=== PATIENT | male | born 1980 | race Hispanic/Latino ===

== ENCOUNTER → 2023-12-17 | Day surgery (SDC) | payer OTHER ==
[~2023-12-17] MED LIST: ALBUMIN 25% 12.5GM 50ML 50 ML IV ONE; BENZOCAINE/TETRACAINE/BUTAMBEN AERO SPRAY 56 GM CAN ONE; DIPHENOXYLATE-1 EACH PO; FEROSUL325 MG PO; FIASP 100100 UNIT/1 SC; GLYCOPYRROLATE INJ 0.2 MG/ML VIAL ONE; INSULIN REGULAR, HUMAN 100 UNIT/1 ML ONE; LIDOCAINE HCL 2% LOCAL INJ 5 ML SDV VIAL INJ ONE; METFORMIN HCL500 MG PO; METOCLOPRAMIDE HCL 10 MG/2ML VIAL ONE; MIDODRINE HCL5 MG PO; PROPOFOL IV EMULSION 10 MG/ML 20 ML VIAL ONE; TYLENOL325 MG PO; VITAMIN B121000 MCG PO
[2023-12-17] MEDS: LACTATED RINGER'S 1,000 ML ONE (13:50)
[2023-12-17 16:56] VITALS: TEMP 97.6
[2023-12-17 17:55] VITALS: BP 107/82; PULSE 81; RESP 16; O2SAT 100
[2023-12-17 18:23] LABS: WBC,FECAL (FECAL LACTOFERRIN) NEGATIVE (NEGATIVE)
[2023-12-20 19:10] LABS: ENDOMYSIAL ANTIBODIES, IGA Negative (Negative)
[2023-12-20 22:08] LABS: IMMUNOGLOBULIN A 593 mg/dL (90-386); TISSUE TRANSGLUTAMINASE IGA AB <2 U/mL (0-3)
== END | disposition home or self-care (01) ==
LOC: OR 13:14
PROVIDERS: ATTEND Internal Medicine Gastroenterology
DX: K29.50 Unspecified chronic gastritis without bleeding (principal); C21.0 Malignant neoplasm of anus, unspecified; D12.0 Benign neoplasm of cecum; K52.9 Noninfective gastroenteritis and colitis, unspecified; K62.89 Other specified diseases of anus and rectum; Z71.3 Dietary counseling and surveillance; R63.4 Abnormal weight loss; E46 Unspecified protein-calorie malnutrition; D64.9 Anemia, unspecified; E11.9 Type 2 diabetes mellitus without complications; N39.0 Urinary tract infection, site not specified; Z01.810 Encounter for preprocedural cardiovascular examination; Z88.6 Allergy status to analgesic agent; Z79.84 Long term (current) use of oral hypoglycemic drugs; Z79.4 Long term (current) use of insulin; Z79.899 Other long term (current) drug therapy; Z86.711 Personal history of pulmonary embolism; Z80.0 Family history of malignant neoplasm of digestive organs
CPT/HCPCS: 36415; 43239; 45380; 45385; 82784; 83516; 83630; 83993; 86256; 87045; 87177; 87324; 87328; 87449; 93005; C9113; J2001; J2704; J2765; J7121

== ENCOUNTER 2023-12-24 21:05 | Inpatient (IN) | payer OTHER ==
[~2023-12-24] VITALS: Ht 162.6 cm; Wt 41.3 kg
[~2023-12-24 21:05] MED LIST changes: -ALBUMIN 25% 12.5GM 50ML 50 ML IV ONE; -BENZOCAINE/TETRACAINE/BUTAMBEN AERO SPRAY 56 GM CAN ONE; -GLYCOPYRROLATE INJ 0.2 MG/ML VIAL ONE; -INSULIN REGULAR, HUMAN 100 UNIT/1 ML ONE; -LIDOCAINE HCL 2% LOCAL INJ 5 ML SDV VIAL INJ ONE; -METOCLOPRAMIDE HCL 10 MG/2ML VIAL ONE; -PROPOFOL IV EMULSION 10 MG/ML 20 ML VIAL ONE
[2023-12-24] MEDS: SODIUM CHLORIDE 0.9% 1000ML 4,000 ML IV STA (21:37)
[2023-12-24] MEDS: ACETAMINOPHEN 325 MG TAB PO STA (21:40)
[2023-12-24 21:42] LABS: BASOPHILS # (AUTO) 0.1 (0.0-0.1); BASOPHILS % 0.3 % (0.0-1.0); EOSINOPHILS % 0.2 % (0.0-6.0); HEMATOCRIT 28.5 % (38.2-49.6); HEMOGLOBIN 9.9 g/dL (14.0-18.0); LYMPHOCYTES # (AUTO) 0.5 (1.0-3.2); LYMPHOCYTES % 3.1 % (18.0-39.1); MEAN CORPUSCULAR HEMOGLOBIN 29.9 pg (28-32); MEAN CORPUSCULAR HGB CONC 34.7 g/dL (31-35); MEAN CORPUSCULAR VOLUME 86.1 fL (81-99); MONOCYTES # (AUTO) 1.2 (0.2-0.8); MONOCYTES % 6.9 % (4.4-11.3); NEUTROPHILS # (AUTO) 15.2 (2.1-6.9); PLATELET COUNT 189 x10e3/uL (140-360); RED BLOOD COUNT 3.31 x10e6/uL (4.3-5.7); RED CELL DISTRIBUTION WIDTH 14.2 % (11.7-14.4); WHITE BLOOD COUNT 17.31 x10e3/uL (4.8-10.8)
[2023-12-24] MEDS ORDERED: ACETAMINOPHEN 325 MG TAB ONE (21:43)
[2023-12-24] MEDS ORDERED: MIDODRINE HCL 5 MG TABLET ONE (21:43)
[2023-12-24] MEDS: MIDODRINE 2.5 MG TAB PO SCH (21:44)
[2023-12-24 21:59] LABS: ALANINE AMINOTRANSFERASE 11 IU/L (0-55); ALBUMIN 2.3 g/dL (3.5-5.0); ALBUMIN/GLOBULIN RATIO 0.5 (0.8-2.0); ALKALINE PHOSPHATASE 104 IU/L (40-150); ANION GAP 29.1 mmol/L (8-16); BILIRUBIN,TOTAL 1.5 mg/dL (0.2-1.2); BLOOD UREA NITROGEN 51 mg/dL (7-26); BUN/CREATININE RATIO 25 (6-25); CALCIUM 9.6 mg/dL (8.4-10.2); CHLORIDE 88 mmol/L (98-107); CREATINE KINASE 52 IU/L (30-200); CREATININE, SERUM 2.05 mg/dL (0.72-1.25); EST GLOMERULAR FILTRATION RATE 41 ML/MIN (>=60); POTASSIUM 4.1 mmol/L (3.5-5.1); SODIUM 122 mmol/L (136-145); TOTAL PROTEIN 6.7 g/dL (6.5-8.1)
[2023-12-24 22:02] LABS: CARBON DIOXIDE 9 mmol/L (22-29)
[2023-12-24 22:03] LABS: GLUCOSE 568 mg/dL (74-118)
[2023-12-24] MEDS: DEXTROSE 5%/0.45% SOD CHL 1,000 ML IV SCH (22:15)
[2023-12-24 22:42] LABS: TROPONIN I < 0.001 ng/mL (0-0.300)
[2023-12-24 22:45] LABS: ABG PCO2 17 mmHg (35-45); ABG PH 7.22 (7.35-7.45)
[2023-12-24 22:46] LABS: ABG HCO3 7 mmol/L (22-26); ABG PO2 114 mmHg (80-105); ABG TCO2 7
[2023-12-24 22:51] LABS: B-TYPE NATRIURETIC PEPTIDE2 54.6 pg/mL (0-100)
[2023-12-24] MEDS: INSULIN REGULAR, HUMAN 3ML VL 100 UNIT in SODIUM CHLORIDE 0.9% 100 ML IV SCH (23:12)
[2023-12-24] MEDS: SODIUM CHLORIDE 0.9% 1000ML 1,000 ML IV SCH (23:16)
[2023-12-24 23:30] VITALS: PULSE 101; RESP 14; TEMP 97.1
[2023-12-24 23:50] VITALS: BP 91/51; PULSE 110; RESP 22; TEMP 98.1; O2SAT 98
[2023-12-25] VITALS (93 sets, daily range): BP systolic 64–104; BP diastolic 43–87; PULSE 32–148; RESP 18–38; TEMP 97.7–98.5; O2SAT 87–100
[2023-12-25 03:26] LABS: CREATINE KINASE 66 IU/L (30-200)
[2023-12-25 03:28] LABS: ANION GAP 19.1 mmol/L (8-16); CALCIUM 8.3 mg/dL (8.4-10.2); CREATININE, SERUM 1.37 mg/dL (0.72-1.25); MAGNESIUM 1.6 MG/DL (1.3-2.1)
[2023-12-25 03:34] LABS: POTASSIUM 3.1 mmol/L (3.5-5.1); TROPONIN I < 0.001 ng/mL (0-0.300)
[2023-12-25 04:28] LABS: LYMPHOCYTES % (MANUAL) 6 % (19-48); METAMYELOCYTES % (MANUAL) 3 % (0-0); MONOCYTES % (MANUAL) 5 % (3.4-9.0); NEUTROPHILS % (MANUAL) 86 % (40-74)
[2023-12-25 04:29] LABS: RBC MORPHOLOGY COMMENT ABNORMAL
[2023-12-25 04:30] LABS: ANISOCYTOSIS SLIGHT; BURR CELLS SLIGHT
[2023-12-25 04:31] LABS: PLATELET ESTIMATE ADEQUATE; PLATELET MORPHOLOGY COMMENT NORMAL
[2023-12-25 06:28] LABS: BASOPHILS % 0.3 % (0.0-1.0); HEMATOCRIT 22.8 % (38.2-49.6); HEMOGLOBIN 8.2 g/dL (14.0-18.0); LYMPHOCYTES # (AUTO) 0.1 (1.0-3.2); LYMPHOCYTES % 1.9 % (18.0-39.1); MEAN CORPUSCULAR HEMOGLOBIN 30.4 pg (28-32); MEAN CORPUSCULAR VOLUME 84.4 fL (81-99); MONOCYTES # (AUTO) 0.3 (0.2-0.8); MONOCYTES % 5.7 % (4.4-11.3); NEUTROPHILS # (AUTO) 5.2 (2.1-6.9); NEUTROPHILS % 90.4 % (38.7-80.0); PLATELET COUNT 146 x10e3/uL (140-360); WHITE BLOOD COUNT 5.76 x10e3/uL (4.8-10.8)
[2023-12-25 06:50] LABS: TROPONIN I 0.002 ng/mL (0-0.300)
[2023-12-25 07:08] LABS: ALBUMIN 1.7 g/dL (3.5-5.0); ALBUMIN/GLOBULIN RATIO 0.5 (0.8-2.0); ANION GAP 17.1 mmol/L (8-16); BILIRUBIN,TOTAL 1.1 mg/dL (0.2-1.2); CALCIUM 8.1 mg/dL (8.4-10.2); CREATININE, SERUM 1.08 mg/dL (0.72-1.25); MAGNESIUM 1.4 MG/DL (1.3-2.1); TOTAL PROTEIN 4.9 g/dL (6.5-8.1)
[2023-12-25 07:09] LABS: BAND NEUTROPHILS % (MANUAL) 7 %; LYMPHOCYTES % (MANUAL) 2 % (19-48); MONOCYTES % (MANUAL) 4 % (3.4-9.0); NEUTROPHILS % (MANUAL) 87 % (40-74); PLATELET ESTIMATE ADEQUATE; PLATELET MORPHOLOGY COMMENT NORMAL; POTASSIUM 3.1 mmol/L (3.5-5.1); RBC MORPHOLOGY COMMENT NORMAL
[2023-12-25] MEDS ORDERED: ACETAMINOPHEN 325 MG TAB PO PRN (07:15)
[2023-12-25] MEDS ORDERED: MICAFUNGIN SODIUM 100 MG IV SCH (07:45)
[2023-12-25] MEDS: VASOPRESSIN 60 UNIT in DEXTROSE 5% 50ML 50 ML IV SCH (07:57)
[2023-12-25] MEDS: AMIODARONE HCL 150 MG/100 ML BAG IV ONE (07:58)
[2023-12-25] MEDS: AMIODARONE 900MG 900 MG in Premix Bag 1 BAG IV SCH (08:14)
[2023-12-25] MEDS ORDERED: IOPAMIDOL 370 MG/ML 100 ML INFUS..BTL INJ ONE (08:33)
[2023-12-25] MEDS: AMIODARONE 900MG 500 ML IV ONE (09:42)
[2023-12-25] MEDS ORDERED: ALBUMIN 25% 25GM 100ML 0.25 GM/ML BTL IV ONE (09:45)
[2023-12-25] MEDS: MEROPENEM 1 GM in SODIUM CHLORIDE 0.9% 100 ML IV SCH (09:48)
[2023-12-25] MEDS: MICAFUNGIN SODIUM 100 MG in SODIUM CHLORIDE 0.9% 100 ML IV SCH (09:49)
[2023-12-25] MEDS: ALBUMIN 25% 25GM 100ML 100 ML IV ONE (10:09)
[2023-12-25] MEDS ORDERED: ALBUMIN 5% 0.05 GM/ML BTL IV ONE (10:30)
[2023-12-25 10:41] LABS: BILIRUBIN,URINE SMALL (NEGATIVE); CLARITY,URINE SL CLOUDY (CLEAR); COLOR,URINE YELLOW (YELLOW); GLUCOSE, URINE 2+ (NEGATIVE); KETONES,URINE 2+ (NEGATIVE); LEUKOCYTE ESTERASE ,URINE NEGATIVE (NEGATIVE); NITRITE,URINE NEGATIVE (NEGATIVE); PH,URINE 5.5 (5 - 7); PROTEIN,URINE DIPSTICK 2+ (NEGATIVE); URINE UROBILINOGEN 0.2 mg/dL (0.2 - 1)
[2023-12-25 10:56] LABS: BACTERIA,URINE FEW /HPF; EPITHELIAL CELLS,URINE FEW /LPF; RBC,URINE >50 /HPF (0-5); WBC,URINE (MAN) 0-5 /HPF (0-5); YEAST,URINE MODERATE
[2023-12-25] MEDS: MIDODRINE HCL 5 MG TABLET PO SCH (12:03)
[2023-12-25] MEDS: Vancomycin IV 1 GM in SODIUM CHLORIDE 0.9% 250ML 250 ML IV ONE (13:40)
[2023-12-25 13:50] LABS: MAGNESIUM 1.4 MG/DL (1.3-2.1); PHOSPHORUS 2.6 MG/DL (2.3-4.7)
[2023-12-25 13:52] LABS: ALBUMIN 1.9 g/dL (3.5-5.0); ALBUMIN/GLOBULIN RATIO 0.7 (0.8-2.0); ALKALINE PHOSPHATASE 48 IU/L (40-150); ANION GAP 12.7 mmol/L (8-16); BILIRUBIN,TOTAL 1.3 mg/dL (0.2-1.2); BLOOD UREA NITROGEN 31 mg/dL (7-26); BUN/CREATININE RATIO 33 (6-25); CARBON DIOXIDE 15 mmol/L (22-29); CHLORIDE 104 mmol/L (98-107); CREATININE, SERUM 0.95 mg/dL (0.72-1.25); EST GLOMERULAR FILTRATION RATE 102 ML/MIN (>=60); GLUCOSE 193 mg/dL (74-118); SODIUM 129 mmol/L (136-145); TOTAL PROTEIN 4.6 g/dL (6.5-8.1)
[2023-12-25 13:53] LABS: ALANINE AMINOTRANSFERASE < 6 IU/L (0-55)
[2023-12-25 13:54] LABS: POTASSIUM 2.7 mmol/L (3.5-5.1)
[2023-12-25 13:58] LABS: TROPONIN I 0.006 ng/mL (0-0.300)
[2023-12-25] MEDS: POTASSIUM CHLORIDE 20MEQ/100ML 200 ML IV PRN (14:01)
[2023-12-25] MEDS: POTASSIUM CHLORIDE 20MEQ/100ML 100 ML ONE ×2 (15:01)
[2023-12-25] MEDS: MAGNESIUM SULF 1GRAM/DEXTROSE 100 ML IV PRN (15:27)
[2023-12-25] MEDS: VASOPRESSIN 60 UNIT in DEXTROSE 5% 50ML 57 ML IV SCH ×2 (15:30→17:15)
[2023-12-25] MEDS: MAGNESIUM SULF 1GRAM/DEXTROSE 100 ML IV ONE (15:36)
[2023-12-25] MEDS ORDERED: Vancomycin IV 1 GM in SODIUM CHLORIDE 0.9% 250ML 250 ML IV SCH (17:30)
[2023-12-25 20:59] LABS: ANION GAP 11.8 mmol/L (8-16); CALCIUM 8.3 mg/dL (8.4-10.2); CREATININE, SERUM 0.79 mg/dL (0.72-1.25); MAGNESIUM 1.8 MG/DL (1.3-2.1)
[2023-12-25 21:06] LABS: POTASSIUM 2.8 mmol/L (3.5-5.1)
[2023-12-26] VITALS (88 sets, daily range): BP systolic 79–120; BP diastolic 56–102; PULSE 35–110; RESP 19–36; TEMP 97.8–98.2; O2SAT 87–100
[2023-12-26 03:52] LABS: ANION GAP 10.9 mmol/L (8-16); CALCIUM 8.5 mg/dL (8.4-10.2); CREATININE, SERUM 0.7 mg/dL (0.72-1.25)
[2023-12-26 03:55] LABS: POTASSIUM 2.9 mmol/L (3.5-5.1)
[2023-12-26] MEDS ORDERED: DEXTROSE 50% SYRINGE 50 ML IV ONE (07:34)
[2023-12-26] MEDS: AMIODARONE 900MG 500 ML IV ONE (08:01)
[2023-12-26] MEDS: POTASSIUM CHLORIDE 20MEQ/100ML 200 ML ONE ×2 (08:15→09:12)
[2023-12-26] MEDS: Vancomycin IV 1 GM in SODIUM CHLORIDE 0.9% 250ML 250 ML IV SCH (08:24)
[2023-12-26 08:32] LABS: ANION GAP 12.2 mmol/L (8-16); CALCIUM 8.3 mg/dL (8.4-10.2); CREATININE, SERUM 0.64 mg/dL (0.72-1.25)
[2023-12-26 08:43] LABS: POTASSIUM 3.2 mmol/L (3.5-5.1)
[2023-12-26] MEDS ORDERED: DEXTROSE 50% SYRINGE 50 ML IV PRN (09:30)
[2023-12-26] MEDS: DEXTROSE 50% SYRINGE 50 ML IV ONE (09:30)
[2023-12-26] MEDS: POTASSIUM CHLORIDE 20MEQ/100ML 100 ML IV PRN (09:47)
[2023-12-26 13:33] LABS: ANION GAP 12.2 mmol/L (8-16); CALCIUM 8.1 mg/dL (8.4-10.2); CREATININE, SERUM 0.63 mg/dL (0.72-1.25); MAGNESIUM 1.6 MG/DL (1.3-2.1)
[2023-12-26 13:41] LABS: POTASSIUM 3.2 mmol/L (3.5-5.1)
[2023-12-26 17:18] LABS: ANION GAP 11.3 mmol/L (8-16); CALCIUM 8.2 mg/dL (8.4-10.2); CREATININE, SERUM 0.62 mg/dL (0.72-1.25); MAGNESIUM 1.5 MG/DL (1.3-2.1)
[2023-12-26 17:21] LABS: POTASSIUM 3.3 mmol/L (3.5-5.1)
[2023-12-26] MEDS: MAGNESIUM SULF 1GRAM/DEXTROSE 100 ML IV PRN (17:25)
[2023-12-26] MEDS ORDERED: IOPAMIDOL 370 MG/ML 100 ML INFUS..BTL INJ ONE (22:05)
[2023-12-26 22:07] LABS: ANION GAP 10.4 mmol/L (8-16); CALCIUM 8.5 mg/dL (8.4-10.2); CREATININE, SERUM 0.64 mg/dL (0.72-1.25); MAGNESIUM 1.8 MG/DL (1.3-2.1)
[2023-12-26 22:14] LABS: POTASSIUM 3.4 mmol/L (3.5-5.1)
[2023-12-27] VITALS (53 sets, daily range): BP systolic 88–117; BP diastolic 61–83; PULSE 93–135; RESP 20–37; TEMP 97.6–98.3; O2SAT 90–100
[2023-12-27] MEDS: MEGESTROL ACETATE 40 MG TAB PO STA (00:31)
[2023-12-27] MEDS: ALBUMIN 25% 25GM 100ML 0.25 GM/ML BTL IV SCH (00:32)
[2023-12-27 01:29] LABS: IRON 40 ug/dL (65-175)
[2023-12-27 02:03] LABS: FOLATE 3.6 ng/mL (7.0-15.4)
[2023-12-27 03:07] LABS: CALCIUM 7.9 mg/dL (8.4-10.2); CREATININE, SERUM 0.67 mg/dL (0.72-1.25); MAGNESIUM 1.7 MG/DL (1.3-2.1)
[2023-12-27 03:11] LABS: % IRON SATURATION 41 % (15-50); TOTAL IRON BINDING CAPACITY 98 ug/dL (261-478)
[2023-12-27 03:22] LABS: TRANSFERRIN 70 mg/dL (174-364)
[2023-12-27 07:41] LABS: ANION GAP 13.2 mmol/L (8-16); CALCIUM 8.1 mg/dL (8.4-10.2); CREATININE, SERUM 0.65 mg/dL (0.72-1.25); MAGNESIUM 1.9 MG/DL (1.3-2.1)
[2023-12-27 07:42] LABS: POTASSIUM 3.2 mmol/L (3.5-5.1)
[2023-12-27] MEDS: MEGESTROL ACETATE 40 MG TAB PO SCH (08:12)
[2023-12-27] MEDS: BALSAM PERU/CASTOR OIL 60 GM OINT...G. TP SCH (08:13)
[2023-12-27] MEDS ORDERED: Vancomycin IV 1.5 GM in SODIUM CHLORIDE 0.9% 250ML 250 ML IV SCH (09:00)
[2023-12-27] MEDS: VANCOMYCIN 1.5 GM/300 ML 300 ML IV SCH (10:29)
[2023-12-27 11:10] LABS: CALCIUM 7.8 mg/dL (8.4-10.2); CREATININE, SERUM 0.62 mg/dL (0.72-1.25); MAGNESIUM 1.8 MG/DL (1.3-2.1)
[2023-12-27] MEDS: POTASSIUM CHLORIDE 20MEQ/100ML 200 ML IV PRN (11:29)
[2023-12-27] MEDS: DAPTOMYCIN 500mg 10ML 300 MG in SODIUM CHLORIDE 0.9% 100 ML IV SCH (14:39)
[2023-12-27] MEDS: METOPROLOL TARTRATE 25 MG TAB PO SCH (14:45)
[2023-12-27 16:05] LABS: ANION GAP 13.3 mmol/L (8-16); CALCIUM 7.9 mg/dL (8.4-10.2); CREATININE, SERUM 0.6 mg/dL (0.72-1.25); MAGNESIUM 1.8 MG/DL (1.3-2.1)
[2023-12-27 16:09] LABS: POTASSIUM 3.3 mmol/L (3.5-5.1)
[2023-12-27 21:08] LABS: ANION GAP 11.3 mmol/L (8-16); CALCIUM 8.3 mg/dL (8.4-10.2); CREATININE, SERUM 0.58 mg/dL (0.72-1.25); MAGNESIUM 1.8 MG/DL (1.3-2.1)
[2023-12-27 21:13] LABS: POTASSIUM 3.3 mmol/L (3.5-5.1)
[2023-12-28] VITALS (72 sets, daily range): BP systolic 73–104; BP diastolic 49–85; PULSE 33–103; RESP 14–36; TEMP 97.2–98.2; O2SAT 67–99
[2023-12-28 00:46] LABS: ANION GAP 10.4 mmol/L (8-16); CALCIUM 8.3 mg/dL (8.4-10.2); CREATININE, SERUM 0.59 mg/dL (0.72-1.25); MAGNESIUM 1.7 MG/DL (1.3-2.1)
[2023-12-28 00:50] LABS: POTASSIUM 3.4 mmol/L (3.5-5.1)
[2023-12-28 04:54] LABS: BASOPHILS % 0.3 % (0.0-1.0); EOSINOPHILS % 0.3 % (0.0-6.0); LYMPHOCYTES # (AUTO) 0.2 (1.0-3.2); LYMPHOCYTES % 1.9 % (18.0-39.1); MEAN CORPUSCULAR HEMOGLOBIN 30.3 pg (28-32); MEAN CORPUSCULAR HGB CONC 35.4 g/dL (31-35); MEAN CORPUSCULAR VOLUME 85.5 fL (81-99); MONOCYTES # (AUTO) 0.8 (0.2-0.8); MONOCYTES % 6.4 % (4.4-11.3); NEUTROPHILS # (AUTO) 10.7 (2.1-6.9); PLATELET COUNT 86 x10e3/uL (140-360); RED BLOOD COUNT 2.28 x10e6/uL (4.3-5.7); RED CELL DISTRIBUTION WIDTH 14.7 % (11.7-14.4)
[2023-12-28 04:59] LABS: HEMATOCRIT 19.5 % (38.2-49.6); HEMOGLOBIN 6.9 g/dL (14.0-18.0)
[2023-12-28 05:10] LABS: CALCIUM 8.1 mg/dL (8.4-10.2); CREATININE, SERUM 0.55 mg/dL (0.72-1.25); MAGNESIUM 1.6 MG/DL (1.3-2.1)
[2023-12-28] MEDS: ONDANSETRON HCL INJ 2MG/ML 2ML 2 MG/ML VIAL IV SCH (07:35)
[2023-12-28] MEDS: SODIUM CHLORIDE 0.9% 250ML 250 ML IV ONE (07:36)
[2023-12-28] MEDS: FOLIC ACID 1 MG TAB PO SCH (08:16)
[2023-12-28] MEDS: IRON SUCROSE 100 MG in SODIUM CHLORIDE 0.9% 100 ML IV SCH (08:16)
[2023-12-28] MEDS: FUROSEMIDE INJ 10 MG/ML 2 ML VIAL IV STA (08:36)
[2023-12-28] MEDS: INSULIN GLARGINE 100 UNITS/ML VIAL SQ ONE (08:37)
[2023-12-28] MEDS ORDERED: Vancomycin IV 2 GM in SODIUM CHLORIDE 0.9% 500ML 500 ML IV ONE (09:30)
[2023-12-28] MEDS: VASOPRESSIN 60 UNIT in DEXTROSE 5% 50ML 57 ML IV SCH (10:27)
[2023-12-28] MEDS: VANCOMYCIN 1.5 GM/300 ML 300 ML IV ONE (10:27)
[2023-12-28] MEDS: INSULIN REGULAR, HUMAN 100 UNIT/1 ML SQ SCH (11:58)
[2023-12-28] MEDS: Vancomycin IV 1 GM in SODIUM CHLORIDE 0.9% 250ML 250 ML IV SCH (21:30)
[2023-12-29] VITALS (85 sets, daily range): BP systolic 72–161; BP diastolic 51–111; PULSE 51–126; RESP 14–34; TEMP 98.2–106; O2SAT 91–100
[2023-12-29] MEDS: NOREPINEPHRINE 8 MG/D5W 250 ML 250 ML IV SCH (01:57)
[2023-12-29 02:18] LABS: ABG PH 7.19 (7.35-7.45)
[2023-12-29 02:19] LABS: ABG HCO3 20 mmol/L (22-26); ABG PCO2 52 mmHg (35-45); ABG PO2 79 mmHg (80-105); ABG TCO2 22
[2023-12-29 06:14] LABS: BASOPHILS # (AUTO) 0.1 (0.0-0.1); BASOPHILS % 0.4 % (0.0-1.0); EOSINOPHILS % 0.1 % (0.0-6.0); HEMATOCRIT 25.9 % (38.2-49.6); LYMPHOCYTES # (AUTO) 0.4 (1.0-3.2); LYMPHOCYTES % 2.8 % (18.0-39.1); MEAN CORPUSCULAR HEMOGLOBIN 30.6 pg (28-32); MEAN CORPUSCULAR HGB CONC 34.7 g/dL (31-35); MEAN CORPUSCULAR VOLUME 88.1 fL (81-99); MONOCYTES # (AUTO) 0.7 (0.2-0.8); NEUTROPHILS % 86.3 % (38.7-80.0); PLATELET COUNT 77 x10e3/uL (140-360); RED BLOOD COUNT 2.94 x10e6/uL (4.3-5.7); RED CELL DISTRIBUTION WIDTH 14.9 % (11.7-14.4); WHITE BLOOD COUNT 13.94 x10e3/uL (4.8-10.8)
[2023-12-29 07:01] LABS: ABG HCO3 19 mmol/L (22-26); ABG PCO2 42 mmHg (35-45); ABG PH 7.26 (7.35-7.45); ABG PO2 80 mmHg (80-105); ABG TCO2 20
[2023-12-29 08:13] LABS: ALBUMIN 3.7 g/dL (3.5-5.0); ALBUMIN/GLOBULIN RATIO 1.5 (0.8-2.0); ANION GAP 17.8 mmol/L (8-16); BILIRUBIN,TOTAL 2.7 mg/dL (0.2-1.2); CALCIUM 8.7 mg/dL (8.4-10.2); CREATININE, SERUM 0.74 mg/dL (0.72-1.25); TOTAL PROTEIN 6.1 g/dL (6.5-8.1)
[2023-12-29 08:15] LABS: POTASSIUM 3.8 mmol/L (3.5-5.1)
[2023-12-29] MEDS: SODIUM BICARBONATE 8.4% SYRING 50 ML in SODIUM CHLORIDE 0.45% 1,000 ML IV ONE (09:18)
[2023-12-29] MEDS: DEXMEDETOMIDINE 400MCG/NS100ML 100 ML IV PRN (12:37)
[2023-12-29 17:34] LABS: ABG HCO3 20 mmol/L (22-26); ABG PCO2 42 mmHg (35-45); ABG PH 7.29 (7.35-7.45); ABG PO2 97 mmHg (80-105); ABG TCO2 22
[2023-12-29] MEDS: PROPOFOL IV EMULSION 10MG/ML 100 ML IV PRN (18:20)
[2023-12-29] MEDS: FENTANYL 2000MCG/NS 250 250 ML IV PRN (18:21)
[2023-12-29 20:37] LABS: ABG HCO3 20 mmol/L (22-26); ABG PCO2 30 mmHg (35-45); ABG PH 7.42 (7.35-7.45); ABG PO2 132 mmHg (80-105); ABG TCO2 21
[2023-12-29] MEDS: ACETAMINOPHEN 1000 MG/100 ML IV STA (21:03)
[2023-12-29] MEDS: ACETAMINOPHEN 1000 MG/100 ML 100 ML IV ONE (21:39)
[2023-12-30] VITALS (73 sets, daily range): BP systolic 75–116; BP diastolic 47–86; PULSE 66–98; RESP 14–20; TEMP 99.4–100.4; O2SAT 95–100
[2023-12-30] MEDS ORDERED: ACETAMINOPHEN 1000 MG/100 ML IV SCH (02:00)
[2023-12-30] MEDS ORDERED: ACETAMINOPHEN 1000 MG/100 ML IV PRN (02:15)
[2023-12-30 06:42] LABS: BASOPHILS % 0.2 % (0.0-1.0); EOSINOPHILS # (AUTO) 0.1 (0.0-0.4); EOSINOPHILS % 0.5 % (0.0-6.0); HEMATOCRIT 25.3 % (38.2-49.6); HEMOGLOBIN 8.8 g/dL (14.0-18.0); LYMPHOCYTES # (AUTO) 0.9 (1.0-3.2); MEAN CORPUSCULAR HEMOGLOBIN 29.8 pg (28-32); MEAN CORPUSCULAR HGB CONC 34.8 g/dL (31-35); MEAN CORPUSCULAR VOLUME 85.8 fL (81-99); MONOCYTES # (AUTO) 0.8 (0.2-0.8); NEUTROPHILS # (AUTO) 9.1 (2.1-6.9); NEUTROPHILS % 82.1 % (38.7-80.0); PLATELET COUNT 60 x10e3/uL (140-360); RED BLOOD COUNT 2.95 x10e6/uL (4.3-5.7); RED CELL DISTRIBUTION WIDTH 15.2 % (11.7-14.4); WHITE BLOOD COUNT 11.04 x10e3/uL (4.8-10.8)
[2023-12-30 07:05] LABS: ALBUMIN 3.7 g/dL (3.5-5.0); ALBUMIN/GLOBULIN RATIO 1.5 (0.8-2.0); ANION GAP 15.5 mmol/L (8-16); BILIRUBIN,TOTAL 2.8 mg/dL (0.2-1.2); CALCIUM 8.4 mg/dL (8.4-10.2); CREATININE, SERUM 0.71 mg/dL (0.72-1.25); TOTAL PROTEIN 6.1 g/dL (6.5-8.1)
[2023-12-30 07:08] LABS: POTASSIUM 2.5 mmol/L (3.5-5.1)
[2023-12-30] MEDS: POTASSIUM CHLORIDE 20MEQ/100ML 100 ML IV SCH (09:21)
[2023-12-30 10:35] LABS: ABG HCO3 26 mmol/L (22-26); ABG PCO2 40 mmHg (35-45); ABG PH 7.43 (7.35-7.45); ABG PO2 82 mmHg (80-105)
[2023-12-30 10:36] LABS: ABG TCO2 28
[2023-12-30 15:56] LABS: ANION GAP 6.8 mmol/L (8-16)
[2023-12-30 15:57] LABS: CREATININE, SERUM 0.8 mg/dL (0.6-1.2)
[2023-12-30 15:58] LABS: CALCIUM 8.3 mg/dL (8.4-10.2)
[2023-12-30 15:59] LABS: POTASSIUM 2.8 mmol/L (3.0-5.1)
[2023-12-30] MEDS: DEXTROSE 50% SYRINGE 50 ML IV PRN (16:07)
[2024-01-05 04:39] LABS: ABG HCO3 7 mmol/L (22-26); ABG PCO2 17 mmHg (35-45); ABG PH 7.22 (7.35-7.45); ABG PO2 114 mmHg (80-105); ABG TCO2 7
[2024-01-05 04:40] LABS: ABG HCO3 20 mmol/L (22-26); ABG PCO2 42 mmHg (35-45); ABG PH 7.29 (7.35-7.45); ABG PO2 97 mmHg (80-105); ABG TCO2 22
[2024-01-05 04:40] LABS: ABG HCO3 19 mmol/L (22-26); ABG PCO2 42 mmHg (35-45); ABG PH 7.26 (7.35-7.45); ABG PO2 80 mmHg (80-105); ABG TCO2 20
[2024-01-05 04:40] LABS: ABG HCO3 20 mmol/L (22-26); ABG PCO2 30 mmHg (35-45); ABG PH 7.42 (7.35-7.45); ABG PO2 132 mmHg (80-105); ABG TCO2 21
[2024-01-05 04:40] LABS: ABG HCO3 26 mmol/L (22-26); ABG PCO2 40 mmHg (35-45); ABG PH 7.43 (7.35-7.45); ABG PO2 82 mmHg (80-105); ABG TCO2 28
[2024-01-05 04:40] LABS: ABG HCO3 20 mmol/L (22-26); ABG PCO2 52 mmHg (35-45); ABG PH 7.19 (7.35-7.45); ABG PO2 79 mmHg (80-105); ABG TCO2 22
== END 2023-12-30 20:05 | disposition short-term general hospital (02) | DRG 871 ==
LOC: ER 21:10 → ERHOLD 22:08 → ICU 23:55
PROVIDERS: ADMIT Internal Medicine; ATTEND Internal Medicine
PROC: 4A033R1 Measurement of Arterial Saturation, Peripheral, Percutaneous Approach (ICD-10-PCS; 2023-12-24)
PROC: 4A033R1 Measurement of Arterial Saturation, Peripheral, Percutaneous Approach (ICD-10-PCS; 2023-12-24)
PROC: 3E03329 Introduction of Other Anti-infective into Peripheral Vein, Percutaneous Approach (ICD-10-PCS; 2023-12-24)
PROC: 02HV33Z Insertion of Infusion Device into Superior Vena Cava, Percutaneous Approach (ICD-10-PCS; principal; 2023-12-25)
PROC: B548ZZA Ultrasonography of Superior Vena Cava, Guidance (ICD-10-PCS; 2023-12-25)
PROC: 3E033XZ Introduction of Vasopressor into Peripheral Vein, Percutaneous Approach (ICD-10-PCS; 2023-12-25)
PROC: 30233N1 Transfusion of Nonautologous Red Blood Cells into Peripheral Vein, Percutaneous Approach (ICD-10-PCS; 2023-12-28)
PROC: 5A1935Z Respiratory Ventilation, Less than 24 Consecutive Hours (ICD-10-PCS; 2023-12-29)
PROC: 0BH17EZ Insertion of Endotracheal Airway into Trachea, Via Natural or Artificial Opening (ICD-10-PCS; 2023-12-29)
PROC: 5A09357 Assistance with Respiratory Ventilation, Less than 24 Consecutive Hours, Continuous Positive Airway Pressure (ICD-10-PCS; 2023-12-29)
PROC: 4A033R1 Measurement of Arterial Saturation, Peripheral, Percutaneous Approach (ICD-10-PCS; 2023-12-29)
PROC: 4A033R1 Measurement of Arterial Saturation, Peripheral, Percutaneous Approach (ICD-10-PCS; 2023-12-29)
PROC: 4A033R1 Measurement of Arterial Saturation, Peripheral, Percutaneous Approach (ICD-10-PCS; 2023-12-29)
PROC: 4A033R1 Measurement of Arterial Saturation, Peripheral, Percutaneous Approach (ICD-10-PCS; 2023-12-29)
PROC: 4A033R1 Measurement of Arterial Saturation, Peripheral, Percutaneous Approach (ICD-10-PCS; 2023-12-29)
PROC: 4A033R1 Measurement of Arterial Saturation, Peripheral, Percutaneous Approach (ICD-10-PCS; 2023-12-29)
PROC: 4A033R1 Measurement of Arterial Saturation, Peripheral, Percutaneous Approach (ICD-10-PCS; 2023-12-29)
PROC: 4A033R1 Measurement of Arterial Saturation, Peripheral, Percutaneous Approach (ICD-10-PCS; 2023-12-29)
PROC: 4A033R1 Measurement of Arterial Saturation, Peripheral, Percutaneous Approach (ICD-10-PCS; 2023-12-30)
PROC: 4A033R1 Measurement of Arterial Saturation, Peripheral, Percutaneous Approach (ICD-10-PCS; 2023-12-30)
DX: A41.02 Sepsis due to Methicillin resistant Staphylococcus aureus (principal); E11.10 Type 2 diabetes mellitus with ketoacidosis without coma; R65.21 Severe sepsis with septic shock; J18.9 Pneumonia, unspecified organism; E43 Unspecified severe protein-calorie malnutrition; J96.01 Acute respiratory failure with hypoxia; Z68.1 Body mass index [BMI] 19.9 or less, adult; C18.7 Malignant neoplasm of sigmoid colon; I47.10 Supraventricular tachycardia, unspecified; N39.0 Urinary tract infection, site not specified; D69.6 Thrombocytopenia, unspecified; E87.6 Hypokalemia; Y95 Nosocomial condition; I48.91 Unspecified atrial fibrillation; R62.7 Adult failure to thrive; R63.4 Abnormal weight loss; Z71.3 Dietary counseling and surveillance; N47.1 Phimosis; N41.9 Inflammatory disease of prostate, unspecified; R31.29 Other microscopic hematuria; A63.0 Anogenital (venereal) warts; R19.7 Diarrhea, unspecified; D63.8 Anemia in other chronic diseases classified elsewhere; Z79.4 Long term (current) use of insulin; Z87.891 Personal history of nicotine dependence; Z11.52 Encounter for screening for COVID-19; Z85.46 Personal history of malignant neoplasm of prostate; Z79.899 Other long term (current) drug therapy
CPT/HCPCS: 36415; 36569; 36600; 71045; 72194; 74018; 74177; 80048; 80053; 80202; 81001; 82550; 82607; 82746; 82805; 82948; 83036; 83540; 83605; 83690; 83735; 83880; 84100; 84466; 84484; 85025; 85045; 86850; 86900; 86920; 87040; 87070; 87071; 87086; 87186; 87205; 93005; 93306; 94002; 94003; 94660; 94799; 99252; 99284; J0295; J1756; J1815; J1940; J2185; J2248; J2405; J2543; J3475; J3480; J7030; J7050; J7799; P9016; P9047; Q9967; U0002